=== PATIENT | male | born 1995 | race Caucasian/White ===

== ENCOUNTER 2023-04-27 19:35 | Emergency (ER) | payer OTHER ==
[~2023-04-27] VITALS: Ht 177.8 cm; Wt 94.1 kg
[2023-04-27 20:02] VITALS: TEMP 97.6
[2023-04-27 20:11] LABS: BASO % 0.4 % (0.0-1.0); EOS # 0.1 10^3/uL (0.0-0.5); EOS % 0.5 % (0.0-3.0); HEMATOCRIT 46.3 % (42.0-52.0); HEMOGLOBIN 14.7 g/dl (13.5-17.5); LYMPH # 1.8 10^3/uL (1.5-5.0); LYMPH % 17.4 % (24.0-44.0); MEAN CORPUSCULAR HEMOGLOBIN 26.9 pg (27.0-33.0); MEAN CORPUSCULAR HGB CONC 31.7 g/dl (32.0-36.5); MEAN CORPUSCULAR VOLUME 84.6 fl (80.0-96.0); MONO # 0.9 10^3/uL (0.0-0.8); MONO % 8.8 % (2.0-8.0); NEUTROPHILS # 7.6 10^3/uL (1.5-8.5); NEUTROPHILS % 72.2 % (36.0-66.0); PLATELET COUNT, AUTOMATED 264 10^3/uL (150-450); RED BLOOD COUNT 5.47 10^6/uL (4.30-6.10); WHITE BLOOD COUNT 10.5 10^3/uL (4.0-10.0)
[2023-04-27] MEDS ORDERED: ISOVUE-370 76% 100ML VIAL As Ordered ONE (20:17)
[2023-04-27 20:34] LABS: MB/CK RELATIVE INDEX 0.69 (< OR =4)
[2023-04-27 21:01] VITALS: BP 134/86
[2023-04-27 21:15] VITALS: O2SAT 99
== END 2023-04-27 22:09 | disposition home or self-care (01) ==
LOC: M ED 19:35
DX: S20.214A Contusion of middle front wall of thorax, initial encounter (principal); R00.1 Bradycardia, unspecified; Y93.B3 Activity, free weights
CPT/HCPCS: 36415; 71260; 80047; 82550; 82553; 84484; 85025; 93005; 93041; 94760; 99285; Q9967

== ENCOUNTER 2024-01-20 22:31 | Emergency (ER) | payer OTHER ==
[~2024-01-20] VITALS: Ht 177.8 cm; Wt 93.1 kg
[2024-01-21] MEDS: LIDOCAINE W/EPINEPHRINE 1% 20ML VIAL SC ONE (00:25)
[2024-01-21] MEDS ORDERED: CEPH500C PO (00:50)
[2024-01-21] MEDS: BACITRACIN OINTMENT 30GM TUBE TOP ONE (00:50)
[2024-01-21 00:59] VITALS: BP 128/80; TEMP 98.7; O2SAT 98
== END 2024-01-21 01:04 | disposition home or self-care (01) ==
LOC: M ED 22:31
DX: S61.411A Laceration without foreign body of right hand, initial encounter (principal); W26.0XXA Contact with knife, initial encounter; Y92.009 Unspecified place in unspecified non-institutional (private) residence as the place of occurrence of the external cause; Y93.9 Activity, unspecified; Y99.9 Unspecified external cause status